=== PATIENT | female | born 1960 | race Caucasian/White ===

== ENCOUNTER → 2017-08-21 | Outpatient (CLI) | payer OTHER | LOC: MC.RAD 07:00 | DX: Z12.31 Encounter for screening mammogram for malignant neoplasm of breast (principal) ==

== ENCOUNTER → 2018-08-26 | Outpatient (CLI) | payer OTHER | LOC: MC.RAD 07:17 | DX: Z12.31 Encounter for screening mammogram for malignant neoplasm of breast (principal) ==

== ENCOUNTER → 2019-07-27 | Outpatient (CLI) | payer OTHER | LOC: COL.RAD 13:30 | DX: N28.9 Disorder of kidney and ureter, unspecified (principal) ==

== ENCOUNTER → 2019-09-01 | Outpatient (CLI) | payer BC | LOC: MC.RAD 07:15 | DX: Z12.31 Encounter for screening mammogram for malignant neoplasm of breast (principal) ==

== ENCOUNTER → 2019-10-04 | Outpatient (CLI) | payer BC | LOC: COL.RAD 12:29 | DX: N13.30 Unspecified hydronephrosis (principal) | CPT/HCPCS: A9562; J1940 ==

== ENCOUNTER → 2020-09-05 | Outpatient (CLI) | payer BC | LOC: MC.RAD 07:38 | DX: Z12.31 Encounter for screening mammogram for malignant neoplasm of breast (principal) ==

== ENCOUNTER → 2021-09-26 | Outpatient (CLI) | payer BC | LOC: MC.RAD 07:17 | DX: Z12.31 Encounter for screening mammogram for malignant neoplasm of breast (principal) ==

== ENCOUNTER → 2022-10-07 | Outpatient (CLI) | payer BC | LOC: MC.RAD 08:58 | DX: Z12.31 Encounter for screening mammogram for malignant neoplasm of breast (principal) ==